=== PATIENT | male | born 1980 | race Caucasian/White ===

== ENCOUNTER 2018-06-20 21:40 | Inpatient (IN) | payer OTHER, MEDICAID ==
[~2018-06-20] VITALS: Ht 322.6 cm; Wt 72.6 kg
[~2018-06-20 21:40] MED LIST: ZYDS20
[2018-06-20] MEDS ORDERED: VANCOMYCIN 1 G PREMIX 200 ML IV SCH ×2 (23:00→23:45)
[2018-06-20] MEDS ORDERED: AMPICILLIN SOD/SULBACTAM NA 3 G in SODIUM CHLORIDE 0.9% 100 ML IV SCH (23:00)
[2018-06-20 23:35] LABS: BASOPHILS % 0.4 % (0.0-2.0); EOSINOPHILS % 1.4 % (0.0-5.0); HEMATOCRIT. 40.9 % (42.0-52.0); HEMOGLOBIN. 13.9 g/dL (14.0-18.0); LYMPHOCYTES % 12.6 % (20.0-50.0); MEAN CORPUSCULAR HEMOGLOBIN 29.8 pg (28.0-32.0); MEAN CORPUSCULAR VOLUME 87.9 fL (80.0-94.0); MONOCYTES % 7.6 % (2.0-8.0); PLATELET 150 x1000/uL (130-400); RED BLOOD CELL COUNT 4.65 mill/uL (4.7-6.1); RED CELL DISTRIBUTION WIDTH 14.2 % (11.6-14.6)
[2018-06-20 23:42] LABS: CHLORIDE 112 mEq/L (98-107)
[2018-06-20] MEDS ORDERED: CLONIDINE 0.1MG TABLET PO PRN (23:45)
[2018-06-20] MEDS ORDERED: ONDANSETRON HCL 4MG/2ML INJ IV PRN (23:45)
[2018-06-20] MEDS ORDERED: ACETAMINOPHEN 650MG/20.3ML UDC GT PRN (23:45)
[2018-06-20] MEDS ORDERED: ACETAMINOPHEN 325MG TABLET PO PRN (23:45)
[2018-06-20] MEDS ORDERED: NA PHOS,M-B/NA PHOS,DI-BA ENEMA 118ML PR PRN (23:45)
[2018-06-20] MEDS ORDERED: MAGNESIUM/ALUMINUM HYDROXIDE/SIMETHICONE 30ML UDC PO PRN (23:45)
[2018-06-20] MEDS ORDERED: DIPHENHYDRAMINE 50MG/ML VIAL IV PRN (23:45)
[2018-06-20] MEDS ORDERED: GUAIFENESIN 200MG/10ML SUGAR FREE UDC PO PRN (23:45)
[2018-06-20] MEDS ORDERED: ACETAMINOPHEN 650MG SUPP PR PRN (23:45)
[2018-06-20] MEDS ORDERED: IPRATROPIUM/ALBUTEROL 0.5-3(2.5)MG/3ML NEB INH PRN (23:45)
[2018-06-21 01:30] VITALS: BP 103/73
[2018-06-21] MEDS ORDERED: CEFTRIAXONE 1 G PREMIX 50 ML IV SCH ×3 (02:45→21:00)
[2018-06-21] MEDS: HYDROCODONE/ACETAMINOPHEN 5/325MG TABLET PO PRN ×3 (03:13→14:21)
[2018-06-21] MEDS: VANCOMYCIN 1250MG in DEXTROSE 5% WATER 250ML IV SCH ×3 (06:03→23:30)
[2018-06-21] MEDS: SODIUM CHLORIDE 0.9% INJ 3ML FLUSH IVF SCH ×2 (06:04→14:00)
[2018-06-21 06:32] LABS: BASOPHILS % 0.6 % (0.0-2.0); EOSINOPHILS % 2.7 % (0.0-5.0); HEMATOCRIT. 40.3 % (42.0-52.0); HEMOGLOBIN. 13.6 g/dL (14.0-18.0); LYMPHOCYTES % 18.4 % (20.0-50.0); MEAN CORPUSCULAR HEMOGLOBIN 29.6 pg (28.0-32.0); MEAN CORPUSCULAR VOLUME 87.7 fL (80.0-94.0); MEAN PLATELET VOLUME 10.4 fl (7.4-10.4); MONOCYTES % 9.2 % (2.0-8.0); NEUTROPHILS % 69.1 % (40.0-76.0); PLATELET 139 x1000/uL (130-400); RED CELL DISTRIBUTION WIDTH 13.7 % (11.6-14.6)
[2018-06-21 06:36] LABS: CHLORIDE 110 mEq/L (98-107)
[2018-06-21 06:47] LABS: LDL CHOLESTEROL 68 mg/dL (5-100)
[2018-06-21 06:49] LABS: HDL CHOLESTEROL 43 mg/dL (40-59)
[2018-06-21 08:00] VITALS: BP 111/73
[2018-06-21] MEDS ORDERED: QUET300T2 PO (08:01)
[2018-06-21] MEDS ORDERED: OLANZAPINE 10MG TABLET PO SCH (09:00)
[2018-06-21] MEDS ORDERED: ENOXAPARIN 40MG/0.4ML SYR SUBCUT SCH (09:00)
[2018-06-21 12:00] VITALS: BP 132/80
[2018-06-21] MEDS ORDERED: CEPH-569 MT (15:01)
[2018-06-21] MEDS ORDERED: LORAZEPAM 0.5MG TABLET PO PRN (15:15)
[2018-06-21 16:00] VITALS: BP 103/75
[2018-06-21] MEDS ORDERED: TETANUS AND DIPHTHERIA TOX/PF 0.5ML SYR (ADULT) IM ONE (16:00)
[2018-06-21] MEDS ORDERED: TETANUS, DIPHTHERIA, PERTUSSIS VAC/PF 0.5ML (>7YR OLD) IM ONE (16:15)
[2018-06-21] MEDS ORDERED: IBUPROFEN 600MG TABLET PO PRN (16:30)
[2018-06-21] MEDS ORDERED: MEDICATION NOT ON FORMULARY EA (Quetiapine Fumarate (Seroquel) 300 MG) PO SCH (21:00)
[2018-06-21] MEDS ORDERED: QUETIAPINE FUMARATE 100MG TABLET PO SCH (21:00)
[2018-06-22] VITALS: BP 103/54
[2018-06-22] MEDS ORDERED: HALOPERIDOL LACTATE 5MG/ML VIAL IM SCH (08:55)
== END 2018-06-22 10:53 | disposition left against medical advice (07) | DRG 383 ==
LOC: ER 21:40 → 6EST 23:15 → ENRESERV 23:58
PROVIDERS: ADMIT Family Medicine; ATTEND Family Medicine
DX: L03.113 Cellulitis of right upper limb (principal); F31.9 Bipolar disorder, unspecified; I10 Essential (primary) hypertension; Z59.0 Homelessness; R45.1 Restlessness and agitation
CPT/HCPCS: 36415; 73130; 80048; 80061; 90715; 96374; 99285; J0295; J0696; J1630; J1650; J3370; J7050; J7060

== ENCOUNTER 2018-06-22 10:08 | Inpatient (IN) | payer OTHER, MEDICAID ==
[~2018-06-22] VITALS: Ht 175.3 cm; Wt 64.9 kg
[~2018-06-22 10:08] MED LIST changes: +CEPH-569 MT; +QUET300T2 PO
[2018-06-22 11:57] LABS: CHLORIDE 105 mEq/L (98-107)
[2018-06-22 11:58] LABS: BASOPHILS % 0.9 % (0.0-2.0); EOSINOPHILS % 1.8 % (0.0-5.0); HEMATOCRIT. 45.7 % (42.0-52.0); HEMOGLOBIN. 15.3 g/dL (14.0-18.0); LYMPHOCYTES % 14.5 % (20.0-50.0); MEAN CORPUSCULAR HEMOGLOBIN 29.6 pg (28.0-32.0); MEAN CORPUSCULAR VOLUME 88.2 fL (80.0-94.0); MEAN PLATELET VOLUME 10.8 fl (7.4-10.4); MONOCYTES % 5.4 % (2.0-8.0); NEUTROPHILS % 77.4 % (40.0-76.0); PLATELET 150 x1000/uL (130-400); RED BLOOD CELL COUNT 5.18 mill/uL (4.7-6.1); RED CELL DISTRIBUTION WIDTH 14.1 % (11.6-14.6)
[2018-06-22 12:04] LABS: PROTHROMBIN TIME 9.8 sec (9.6-11.0)
[2018-06-22] MEDS ORDERED: CLONIDINE 0.1MG TABLET PO PRN (12:30)
[2018-06-22] MEDS ORDERED: HYDROCODONE/ACETAMINOPHEN 5/325MG TABLET PO PRN (12:30)
[2018-06-22] MEDS ORDERED: DOCUSATE SODIUM 100MG CAPSULE PO PRN (12:30)
[2018-06-22] MEDS ORDERED: ACETAMINOPHEN 325MG TABLET PO PRN (12:30)
[2018-06-22] MEDS ORDERED: NA PHOS,M-B/NA PHOS,DI-BA ENEMA 118ML PR PRN (12:30)
[2018-06-22] MEDS ORDERED: DIPHENHYDRAMINE 50MG/ML VIAL IV PRN (12:30)
[2018-06-22] MEDS ORDERED: GUAIFENESIN 200MG/10ML SUGAR FREE UDC PO PRN (12:30)
[2018-06-22] MEDS ORDERED: ONDANSETRON HCL 4MG/2ML INJ IV PRN (12:30)
[2018-06-22] MEDS ORDERED: MAGNESIUM/ALUMINUM HYDROXIDE/SIMETHICONE 30ML UDC PO PRN (12:30)
[2018-06-22] MEDS ORDERED: MORPHINE SULFATE 2 MG/ML CPJ (NOT FOR IM USE) IV PRN (12:30)
[2018-06-22] MEDS ORDERED: PIPERACILLIN/TAZ 3.375G PREMIX 50 ML IV SCH (13:00)
[2018-06-22] MEDS ORDERED: VANCOMYCIN 1 G PREMIX 200 ML IV SCH (13:15)
[2018-06-22] MEDS: ENOXAPARIN 40MG/0.4ML SYR SUBCUT SCH (13:53)
[2018-06-22 16:00] VITALS: BP_SYST 111; BP_SYST 113; BP_DIAS 59; BP_DIAS 66
[2018-06-22] MEDS: LORAZEPAM 2MG/ML CPJ IV PRN (16:32)
[2018-06-22 19:09] LABS: CHLORIDE 108 mEq/L (98-107)
[2018-06-22 20:00] VITALS: BP 125/63
[2018-06-22] MEDS: VANCOMYCIN 1500MG in DEXTROSE 5% WATER 250ML IV SCH (20:19)
[2018-06-22] MEDS ORDERED: VANCOMYCIN 1500MG in DEXTROSE 5% WATER 250ML IV SCH (22:00)
[2018-06-22] MEDS: QUETIAPINE FUMARATE 100MG TABLET PO SCH (22:43)
[2018-06-22] MEDS: PIPERACILLIN/TAZ 3.375G PREMIX 50 ML IV SCH (22:51)
[2018-06-23] VITALS: BP 125/54
[2018-06-23 04:00] VITALS: BP 133/65
[2018-06-23] MEDS: PIPERACILLIN/TAZ 3.375G PREMIX 50 ML IV SCH ×3 (06:16→21:17)
[2018-06-23 07:02] LABS: BASOPHILS % 0.6 % (0.0-2.0); EOSINOPHILS % 3.5 % (0.0-5.0); HEMATOCRIT. 42.8 % (42.0-52.0); HEMOGLOBIN. 14.6 g/dL (14.0-18.0); LYMPHOCYTES % 18.8 % (20.0-50.0); MONOCYTES % 6.9 % (2.0-8.0); NEUTROPHILS % 70.2 % (40.0-76.0); PLATELET 161 x1000/uL (130-400); RED BLOOD CELL COUNT 4.87 mill/uL (4.7-6.1); RED CELL DISTRIBUTION WIDTH 13.9 % (11.6-14.6)
[2018-06-23 07:42] LABS: CHLORIDE 110 mEq/L (98-107)
[2018-06-23 07:56] LABS: LDL CHOLESTEROL 73 mg/dL (5-100)
[2018-06-23 07:57] LABS: HDL CHOLESTEROL 42 mg/dL (40-59)
[2018-06-23 08:00] VITALS: BP 126/76
[2018-06-23] MEDS: LORAZEPAM 2MG/ML CPJ IV PRN ×2 (10:57→15:37)
[2018-06-23] MEDS: VANCOMYCIN 1500MG in DEXTROSE 5% WATER 250ML IV SCH ×2 (10:57→20:06)
[2018-06-23 12:00] VITALS: BP 114/66
[2018-06-23] MEDS: ENOXAPARIN 40MG/0.4ML SYR SUBCUT SCH (13:00)
[2018-06-23 16:00] VITALS: BP 118/65
[2018-06-23] MEDS: QUETIAPINE FUMARATE 100MG TABLET PO SCH (20:06)
[2018-06-24] MEDS: QUETIAPINE FUMARATE 100MG TABLET PO SCH (00:39)
[2018-06-24] MEDS: PIPERACILLIN/TAZ 3.375G PREMIX 50 ML IV SCH (05:01)
[2018-06-24 07:52] LABS: CHLORIDE 109 mEq/L (98-107)
[2018-06-24 08:00] VITALS: BP 120/82
[2018-06-24] MEDS: VANCOMYCIN 1500MG in DEXTROSE 5% WATER 250ML IV SCH (09:00)
== END 2018-06-24 10:50 | disposition left against medical advice (07) | DRG 383 ==
LOC: ER 10:08 → 6EST 12:12 → EDBEDREQ 12:21 → EDBEDREQSVC 12:21 → ENRESERV 14:01 → 6EST 06-24 00:27
PROVIDERS: ADMIT Internal Medicine; ATTEND Internal Medicine
DX: L03.113 Cellulitis of right upper limb (principal); R65.10 Systemic inflammatory response syndrome (SIRS) of non-infectious origin without acute organ dysfunction; I10 Essential (primary) hypertension; Z59.0 Homelessness; Z79.899 Other long term (current) drug therapy
CPT/HCPCS: 36415; 80048; 80061; 80202; 96365; 96367; 96372; 96375; 99285; J1200; J1650; J2060; J2543; J3370; J7040; J7060